=== PATIENT | male | born 1955 | race African-American/Black ===

== ENCOUNTER 2019-07-07 17:47 | Emergency (ER) | payer MEDICAID, OTHER ==
[~2019-07-07] VITALS: Ht 177.8 cm; Wt 136.0 kg
[~2019-07-07 17:47] MED LIST: AMLO2.5T45 PO; POTA10TA11 PO
[2019-07-07] MEDS ORDERED: MORPHINE SULFATE 10 MG/ML CPJ IM ONE (19:15)
[2019-07-07] MEDS ORDERED: ONDANSETRON 4MG ODT PO ONE (19:15)
[2019-07-07 20:50] LABS: CLARITY URINE CLEAR (CLEAR); COLOR URINE YELLOW (YELLOW); KETONES URINE NEGATIVE (NEGATIVE); LEUKOCYTE ESTERASE URINE NEGATIVE (NEGATIVE); NITRITE URINE NEGATIVE (NEGATIVE); OCCULT BLOOD URINE NEGATIVE (NEGATIVE); PROTEIN URINE NEGATIVE (NEGATIVE); SPECIFIC GRAVITY URINE 1.022 (1.005-1.030)
[2019-07-07] MEDS ORDERED: KETOROLAC 30MG/ML VIAL IM ONE (21:15)
[2019-07-08 01:08] VITALS: BP 146/81
== END 2019-07-08 01:09 | disposition home or self-care (01) ==
LOC: ER 17:47
DX: M54.5 Low back pain (principal); I10 Essential (primary) hypertension; E11.9 Type 2 diabetes mellitus without complications
CPT/HCPCS: 81003; 96372; 99283; J1885; J2270; Q0162